=== PATIENT | male | born 1985 | race African-American/Black ===

== ENCOUNTER → 2022-01-19 | Outpatient (CLI) | payer OTHER | END | disposition home or self-care (01) | LOC: MSR 12:54 | PROVIDERS: ATTEND Chiropractor | DX: M25.752 Osteophyte, left hip (principal); M25.751 Osteophyte, right hip; K59.00 Constipation, unspecified; R07.9 Chest pain, unspecified; I49.9 Cardiac arrhythmia, unspecified; M13.80 Other specified arthritis, unspecified site | CPT/HCPCS: 71046; 73521; 93005; 93306 ==